=== PATIENT | female | born 1980 | race Caucasian/White ===

== ENCOUNTER 2017-09-07 08:17 | Day surgery (SDC) | payer BC, OTHER ==
[~2017-09-07 08:17] MED LIST: Dextrose 5%-Lactated Ringers 1,000 ML IV SCH; Glycopyrrolate 0.2 MG/ML 2 ML SDV IVPUSH ONE
[2017-09-07] MEDS ORDERED: Glycopyrrolate 0.2 MG/ML 2 ML SYRINGE IVPUSH ONE (09:30)
[2017-09-07] MEDS ORDERED: fentaNYL 100 MCG/2 ML SDV ONE (11:13)
[2017-09-07] MEDS ORDERED: Propofol 200 MG/20 ML SDV ONE ×2 (11:13→12:11)
[2017-09-07] MEDS ORDERED: Midazolam 1 MG/ML 2 ML SDV ONE (11:14)
--- NOTE | 2017-09-16 15:16 | OR ---
DATE OF PROCEDURE: 09/07/2017 PREOPERATIVE DIAGNOSIS: Inadequate weight loss status post sleeve gastrectomy. POSTOPERATIVE DIAGNOSIS: Normal upper GI endoscopic examination status post sleeve gastrectomy. OPERATIVE PROCEDURE: Upper GI endoscopy with biopsies of antrum for CLOtest. ANESTHESIA: IV sedation. INDICATION FOR PROCEDURE: A 37-year-old female presenting with inadequate weight loss following sleeve gastrectomy. Presently, her height is 4 feet 11.9 inches, weight of 250. BMI of just over 50. Plan is to proceed with upper GI endoscopy to identify anatomic problems. Potential risks including bleeding and perforation were discussed, and the patient wishes to proceed. DETAILS OF PROCEDURE: The patient was taken to the operating room and placed in a left lateral decubitus position. IV sedation was administered, after which the upper GI endoscope was passed orally through the length of the esophagus and into the stomach, from there through the pyloric channel and into the junction of the third and fourth portions of the duodenum. Overall, the findings were essentially normal. There appeared to be normal-sized sleeve gastrectomy and normal outlet. There is no significant inflammation at any point along the examination and at that point, biopsies were obtained from the antrum and sent for CLOtest to assess the patient's H. pylori status. Otherwise, minimal bleeding from the biopsy sites were seen, and the scope was then removed. It would appear that the patient will be candidate to convert to a duodenal switch, which would likely result in significant improvement in her weight loss as well as general medical status. The insurance company will be contacted regarding prior authorization. Yanick Desai MD /[id number]
== END 2017-09-07 13:10 | disposition home or self-care (01) ==
LOC: JP.SDS 08:17
PROVIDERS: ATTEND Surgery
DX: R63.4 Abnormal weight loss (principal); K21.9 Gastro-esophageal reflux disease without esophagitis; Z90.3 Acquired absence of stomach [part of]
CPT/HCPCS: 43239; 87081; J2250; J2704; J3010; J7042